=== PATIENT | female | born 1955 | race Caucasian/White ===

== ENCOUNTER 2021-01-20 15:34 | Inpatient (IN) ==
[2021-01-20 15:57] LABS: ABS Eosinophils 0.3 10^3/ul (0-0.6); ABS Lymphocytes 2.4 10^3/ul (1.0-4.8); ABS Monocytes 0.5 10^3/ul (0-0.8); ABS Neutrophils 4.9 10^3/ul (1.5-7.7); Eosinophil % 3.2 %; Hematocrit 43 % (35-47); Hemoglobin 14.7 g/dL (12.0-16.0); Mean Corpuscular HGB Conc 34 g/dL (31-36); Mean Corpuscular Hemoglobin 31 pg (27-31); Mean Corpuscular Volume 91 fL (80-97); Mean Platelet Volume 7.2 fL (7.4-10.4); Nucleated Red Blood Cells % 0.1; Platelet Count 252 10^3/uL (150-450); Red Cell Distribution Width 13 % (10-15); White Blood Count 8.1 10^3/uL (3.5-10.8)
[2021-01-20] MEDS ORDERED: LORazepam 2 mg VIAL 1 ml ONE (15:58)
[2021-01-20] MEDS ORDERED: Iodixanol (CONTRAST) 320 MG/ML 100 ML SDV IV ONE (15:58)
[2021-01-20] MEDS ORDERED: Lorazepam PYXIS KEY PRN (16:02)
[2021-01-20] MEDS ORDERED: LORazepam 2 mg VIAL 1 ml IV PUSH ONE (16:02)
[2021-01-20 16:15] LABS: INR 0.99 (0.86-1.15)
[2021-01-20 16:19] LABS: Albumin 4.8 g/dL (3.2-5.2); Albumin/Globulin Ratio 1.7 (1-3); Calcium 9.7 mg/dL (8.6-10.3); EGFR African American 90.3 (>60); EGFR Non-African American 74.6 (>60); Globulin 2.9 g/dL (2-4); Magnesium 2.3 mg/dL (1.9-2.7); Total Bilirubin 0.4 mg/dL (0.2-1.0); Total Protein 7.7 g/dL (6.4-8.9)
[2021-01-20] MEDS ORDERED: levETIRAcetam 1000MG IVPREMIX 1,000 MG/100 ML BAG IVPB ONE (16:32)
[2021-01-20 17:02] LABS: Phosphorus 3.7 mg/dL (2.5-5.0)
[2021-01-20] MEDS ORDERED: levETIRAcetam 500 MG IVPREMIX 500 MG/100 ML BAG IV SCH (21:00)
[2021-01-20 21:28] LABS: TSH Ultra Thyroid Stim Horm 1.27 mcIU/mL (0.34-5.60)
[2021-01-20] MEDS ORDERED: Lactated Ringers 1000 ml BAG 1,000 ML IV SCH (23:45)
[2021-01-21] MEDS: Enoxaparin 40 MG/0.4 ML SYR SUBCUT SCH ×2 (00:38→21:42)
[2021-01-21 01:38] LABS: Urine Benzodiazepine Screen None Detected (None Detect); Urine Cannabinoids Screen None Detected (None Detect); Urine Opiates Screen None Detected (None Detect)
[2021-01-21 03:32] LABS: Urine Appearance Turbid; Urine Bilirubin Negative (Negative); Urine Blood Negative (Negative); Urine Color Amber; Urine Glucose Negative (Negative); Urine Ketones Negative (Negative); Urine Nitrite Negative (Negative); Urine Protein Negative (Negative); Urine Specific Gravity 1.049 (1.002-1.030); Urine Urobilinogen Negative (Negative)
[2021-01-21] MEDS ORDERED: Magnesium Hydroxide LIQ 30 ML UDC PO PRN (07:56)
[2021-01-21] MEDS ORDERED: Senna TAB 8.6 mg TAB PO PRN (07:56)
[2021-01-21 08:03] LABS: C Reactive Protein 1.44 mg/L (<8.01)
[2021-01-21] MEDS ORDERED: levETIRAcetam 500 MG IVPREMIX 500 MG/100 ML BAG IV SCH (09:00)
[2021-01-21] MEDS: Cyanocobalamin INJ 1,000 MCG/ML VIAL 1 ML VIAL IM SCH (13:15)
[2021-01-21] MEDS: Thiamine 100 MG/ML 2 ml VIAL 500 MG in NS 0.9% 250 ml 250 ML IV SCH ×2 (15:40→21:45)
[2021-01-22] MEDS: Thiamine 100 MG/ML 2 ml VIAL 500 MG in NS 0.9% 250 ml 250 ML IV SCH ×3 (05:45→23:04)
[2021-01-22] MEDS: Cyanocobalamin INJ 1,000 MCG/ML VIAL 1 ML VIAL IM SCH (09:08)
[2021-01-22] MEDS ORDERED: LORazepam 2 mg VIAL 1 ml IV PUSH ONE (09:25)
[2021-01-22] MEDS ORDERED: LORazepam 2 mg VIAL 1 ml ONE (09:35)
[2021-01-22] MEDS ORDERED: Metoclopramide 5 MG/ML VIAL (10 mg) IV ONE (11:06)
[2021-01-22] MEDS ORDERED: diPHENhydraMINE IV 50 MG/ML 1 ml VIAL (BENADRYL) IV ONE (11:07)
[2021-01-22] MEDS ORDERED: LORazepam 2 mg VIAL 1 ml IV PUSH PRN (13:56)
[2021-01-22] MEDS ORDERED: Lorazepam PYXIS KEY PRN (13:56)
[2021-01-22] MEDS: Enoxaparin 40 MG/0.4 ML SYR SUBCUT SCH (23:04)
[2021-01-23] MEDS: Thiamine 100 MG/ML 2 ml VIAL 500 MG in NS 0.9% 250 ml 250 ML IV SCH ×2 (06:28→15:45)
[2021-01-23] MEDS: Cyanocobalamin INJ 1,000 MCG/ML VIAL 1 ML VIAL IM SCH (08:29)
[2021-01-23 16:56] VITALS: BP 152/80
== END 2021-01-23 18:18 | disposition home or self-care (01) | DRG 750 ==
LOC: MEDTELE 15:34 → ED 15:34 → OBSVTOIN 21:30 → MEDTELE 22:30
PROVIDERS: ADMIT Hospitalist; ATTEND Internal Medicine